=== PATIENT | female | born 1985 | race Two or more races ===

== ENCOUNTER 2017-05-29 11:56 | Inpatient (IN) | payer OTHER ==
[~2017-05-29] VITALS: Ht 165.1 cm; Wt 63.5 kg
[2017-05-29] MEDS ORDERED: Acetaminophen 500mg (ES) tab ORAL ONE (12:15)
[2017-05-29 12:30] LABS: ABG ALLEN TEST POSITIVE; ABG BASE EXCESS 0.9; ABG PCO2 28.7 mmHg (35.0-45.0)
[2017-05-29 12:37] LABS: BASOPHILS % (AUTO) 0.5 % (0.0-2.0); LYMPHOCYTES % (AUTO) 13.1 % (20.0-45.0); MEAN CORPUSCULAR HEMOGLOBIN 29.6 PG (27.0-31.0); MEAN CORPUSCULAR HGB CONC 31.7 G/DL (32.0-36.0); MEAN CORPUSCULAR VOLUME 93 FL (80-99); MEAN PLATELET VOLUME 7.3 FL (6.5-10.1); MONOCYTES % (AUTO) 6.4 % (1.0-10.0); PLATELET COUNT 328 K/UL (150-450); RED BLOOD COUNT 3.38 M/UL (4.20-5.40); WHITE BLOOD COUNT 9.2 K/UL (4.8-10.8)
[2017-05-29] MEDS ORDERED: METOPROLOL TART25 MG GT (12:49)
[2017-05-29] MEDS ORDERED: COLACE100 MG GT (12:49)
[2017-05-29] MEDS ORDERED: NORCO1 E1 GT (12:49)
[2017-05-29] MEDS ORDERED: ALBUTEROL SULF8.5 GM INH (12:49)
[2017-05-29 12:50] LABS: TROPONIN I < 0.30 ng/mL (<=0.30)
[2017-05-29 12:51] LABS: ALANINE AMINOTRANSFERASE 33 U/L (3-33); ALBUMIN/GLOBULIN RATIO 0.9 (1.0-2.7); ANION GAP 14 (5-15); ASPARTATE AMINO TRANSFERASE 22 U/L (5-40); CALCIUM 9.5 mg/dL (8.6-10.2); CARBON DIOXIDE 26 mEQ/L (20-30); CHLORIDE 96 mEQ/L (98-107); CREATININE 0.5 mg/dL (0.5-0.9); GLOMERULAR FILTRATION RATE > 60 mL/min (>60); HEMOLYSIS 0; POTASSIUM 4.3 mEQ/L (3.4-4.9); SODIUM 136 mEQ/L (135-145); TOTAL PROTEIN 7.9 g/dL (6.6-8.7)
[2017-05-29] MEDS ORDERED: Cefepime 1gm vial ONE (12:54)
[2017-05-29 12:56] LABS: APPEARANCE,URINE CLEAR; KETONES,URINE NEGATIVE (NEGATIVE); LEUKOCYTE ESTERASE ,URINE 1+ (NEGATIVE); NITRITE,URINE NEGATIVE (NEGATIVE); PH,URINE 7 (4.5-8.0); PROTEIN,URINE 1+ (NEGATIVE); UROBILINOGEN,URINE 4 MG/DL (0.0-1.0)
[2017-05-29 13:01] LABS: CKMB < 1.5 ng/mL (< 3.8)
[2017-05-29] MEDS: Cefepime HCl 1 GM in NS 55 ML IV SCH (13:06)
[2017-05-29 13:10] LABS: BACTERIA,URINE FEW /HPF; RBC,URINE 0-2 /HPF (0 - 2); SQUAMOUS EPITHELIAL CELL,UR FEW /LPF (NONE/OCC)
[2017-05-29 13:24] VITALS: BP 117/64
[2017-05-29] MEDS ORDERED: Acetaminophen 650mg/20.3ml GT ONE (13:30)
[2017-05-29] MEDS: metroNIDAZOLE 500mg 100 ML IV SCH ×2 (13:37→22:17)
[2017-05-29 14:37] VITALS: BP 116/66
[2017-05-29] MEDS ORDERED: MIRALAX17 G2 GT (14:47)
[2017-05-29] MEDS ORDERED: LOVENOX10 M2 SUBQ (14:47)
[2017-05-29] MEDS ORDERED: PROPRANOLOL HCL20 MG GT (14:47)
[2017-05-29] MEDS ORDERED: LISINOPRIL10 MG GT (14:47)
--- NOTE | 2017-05-29 14:54 | Diagnostic Imaging Report ---
Indication: PAIN Technique: One view of the pelvis Comparison: None Findings: There is evidence of extensive prior surgery. A large screw extends across the midline, likely fusing the sacrum and bilateral iliac wings. Immediately inferior to this are bilateral screws likely also fusing the iliac bones to the sacrum. A metallic sari attached to large device is seen at the lateral aspect of the right iliac wing. A surgical screw extends from the left supra-acetabular region, traverses across the acetabulum, and into the superior pubic ramus. There is questionably a visible fracture line at the junction of the superior pubic ramus and the acetabulum on this side. Another metallic sari extends from the left iliac bone beyond the image plane. Multiple healed fractures are seen involving the bilateral inferior pubic rami and right superior pubic ramus. There is some diastasis of the pubic symphysis. A Summers catheter is seen coiled within the bladder. No other acute fractures are demonstrated. Impression: Postsurgical and posttraumatic changes, as described. Correlate with clinical history
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
[2017-05-29 16:00] VITALS: BP 108/63
--- NOTE | 2017-05-29 16:57 | Diagnostic Imaging Report ---
Indication: SOB Technique: One view of the chest Comparison: none Findings: There is equivocal mild interstitial congestion. There is a tracheostomy. No focal airspace consolidation. Pleural spaces are clear. Heart size is normal. Surgical hardware seen in the right shoulder Impression: Equivocal mild interstitial congestion. No acute process otherwise Other findings as noted
[2017-05-29] MEDS ORDERED: LORazepam Inj 2mg/ml 1ml IV PRN (17:45)
[2017-05-29] MEDS ORDERED: DuoNeb 0.5-3(2.5)mg/3ml neb HHN PRN (17:45)
[2017-05-29] MEDS ORDERED: Morphine Sulfate 4mg/ml Inj IVP PRN (17:45)
[2017-05-29] MEDS ORDERED: Miralax 17gm pkt ORAL PRN (17:45)
[2017-05-29] MEDS ORDERED: Propranolol 40mg tab GT SCH (18:00)
[2017-05-29] MEDS ORDERED: Propranolol 10mg tab GT SCH (18:00)
[2017-05-29] MEDS: Piperacillin/Tazobactam 3.375 GM in NS 110 ML IVPB SCH (18:45)
[2017-05-29] MEDS ORDERED: Vancomycin 1250mg/D5W 250ml 250 ML IVPB SCH (19:00)
[2017-05-29 20:14] VITALS: BP 110/58
[2017-05-29 22:29] LABS: THYROID STIMULATING HORMONE 0.744 uIU/mL (0.300-4.500)
[2017-05-29] MEDS: Heparin 5000 units/ml inj SUBQ SCH (22:37)
[2017-05-30] VITALS (7 sets, daily range): BP systolic 104–115; BP diastolic 54–78
[2017-05-30] MEDS ORDERED: Cefepime 1gm vial ONE (00:08)
[2017-05-30] MEDS: Cefepime HCl 1 GM in NS 55 ML IV SCH (00:12)
[2017-05-30] MEDS: metroNIDAZOLE 500mg 100 ML IV SCH (04:02)
[2017-05-30] MEDS: Piperacillin/Tazobactam 3.375 GM in NS 110 ML IVPB SCH ×5 (05:19→22:00)
[2017-05-30 05:21] LABS: BASOPHILS % (AUTO) 0.6 % (0.0-2.0); EOSINOPHILS % (AUTO) 0.1 % (0.0-3.0); LYMPHOCYTES % (AUTO) 17.8 % (20.0-45.0); MEAN CORPUSCULAR HEMOGLOBIN 30.4 PG (27.0-31.0); MEAN CORPUSCULAR HGB CONC 32.7 G/DL (32.0-36.0); MEAN CORPUSCULAR VOLUME 93 FL (80-99); MEAN PLATELET VOLUME 7.3 FL (6.5-10.1); MONOCYTES % (AUTO) 5.5 % (1.0-10.0); PLATELET COUNT 300 K/UL (150-450); RED BLOOD COUNT 2.76 M/UL (4.20-5.40); RED CELL DISTRIBUTION WIDTH 15.8 % (11.6-14.8); WHITE BLOOD COUNT 12.7 K/UL (4.8-10.8)
[2017-05-30 05:38] LABS: ANION GAP 12 (5-15); CALCIUM 8.7 mg/dL (8.6-10.2); CARBON DIOXIDE 25 mEQ/L (20-30); CHLORIDE 100 mEQ/L (98-107); CREATININE 0.3 mg/dL (0.5-0.9); GLOMERULAR FILTRATION RATE > 60 mL/min (>60); HEMOLYSIS 0; PHOSPHORUS 3.6 mg/dL (2.5-4.8); POTASSIUM 3.2 mEQ/L (3.4-4.9); SODIUM 137 mEQ/L (135-145)
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
[2017-05-30] MEDS ORDERED: KCl 10% 40mEq/30ml liquid NG ONE (08:00)
[2017-05-30 09:22] LABS: ABG BASE EXCESS -0.5; ABG PCO2 30.8 mmHg (35.0-45.0)
[2017-05-30 09:23] LABS: ABG ALLEN TEST POSITIVE
[2017-05-30] MEDS: Metoprolol Tartrate 12.5mg TAB GT SCH ×2 (09:47→20:37)
[2017-05-30] MEDS: Lisinopril 20mg tab GT SCH (09:47)
[2017-05-30] MEDS: Miralax 17gm pkt GT SCH (09:47)
[2017-05-30] MEDS: Pantoprazole Inj IV SCH (09:48)
[2017-05-30] MEDS: Vancomycin 1gm/D5W 275ml IVPB SCH ×4 (09:48→20:00)
[2017-05-30] MEDS: Heparin 5000 units/ml inj SUBQ SCH ×2 (09:54→20:38)
[2017-05-30 10:21] LABS: HEMOLYSIS 0; IRON 20 ug/dL (37-145); TOTAL IRON BINDING CAPACITY 188 ug/dL (250-400)
[2017-05-30 10:24] LABS: FERRITIN 375 ng/mL (13-150)
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
[2017-05-30] MEDS ORDERED: Vancomycin 1 GM in D5W 275 ML IV SCH (23:00)
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
[2017-05-31 03:30] VITALS: BP 129/91
[2017-05-31] MEDS: Piperacillin/Tazobactam 3.375 GM in NS 110 ML IVPB SCH ×3 (05:35→22:00)
[2017-05-31 07:16] LABS: BASOPHILS % (AUTO) 0.5 % (0.0-2.0); EOSINOPHILS % (AUTO) 0.3 % (0.0-3.0); LYMPHOCYTES % (AUTO) 26.1 % (20.0-45.0); MEAN CORPUSCULAR HEMOGLOBIN 30.6 PG (27.0-31.0); MEAN CORPUSCULAR HGB CONC 33.1 G/DL (32.0-36.0); MEAN CORPUSCULAR VOLUME 92 FL (80-99); MEAN PLATELET VOLUME 7.6 FL (6.5-10.1); MONOCYTES % (AUTO) 5.9 % (1.0-10.0); NEUTROPHILS % (AUTO) 67.2 % (45.0-75.0); PLATELET COUNT 329 K/UL (150-450); RED BLOOD COUNT 3.09 M/UL (4.20-5.40); RED CELL DISTRIBUTION WIDTH 15.7 % (11.6-14.8); WHITE BLOOD COUNT 10.3 K/UL (4.8-10.8)
[2017-05-31 07:42] LABS: CALCIUM 8.9 mg/dL (8.6-10.2); CHLORIDE 103 mEQ/L (98-107); CREATININE 0.3 mg/dL (0.5-0.9); GLOMERULAR FILTRATION RATE > 60 mL/min (>60); HEMOLYSIS 1; MAGNESIUM 1.9 mg/dL (1.7-2.5); POTASSIUM 4.3 mEQ/L (3.4-4.9); SODIUM 139 mEQ/L (135-145)
[2017-05-31 07:48] LABS: ANION GAP 14 (5-15); CARBON DIOXIDE 22 mEQ/L (20-30)
[2017-05-31 08:01] VITALS: BP 113/67
[2017-05-31] MEDS: Metoprolol Tartrate 12.5mg TAB GT SCH ×2 (08:32→20:28)
[2017-05-31] MEDS: Vancomycin 1gm/D5W 275ml IVPB SCH ×2 (08:32)
[2017-05-31] MEDS: Lisinopril 20mg tab GT SCH (08:33)
[2017-05-31] MEDS: Heparin 5000 units/ml inj SUBQ SCH ×2 (08:35→20:35)
[2017-05-31] MEDS: Pantoprazole Inj IV SCH (08:35)
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
[2017-05-31] MEDS: Miralax 17gm pkt GT SCH (09:00)
--- NOTE | 2017-05-31 09:34 | Diagnostic Imaging Report ---
Indication: Shortness of breath Technique: XRAY CHEST 1 V Comparison: 05/29/17 Findings: Tracheostomy is partially visualized. Cardiomediastinal silhouette is stable. There is no consolidation, pneumothorax or pleural effusion. Osseous structures demonstrate no acute abnormality. Impression: Interval resolution of mild interstitial congestion. No new consolidation.
--- NOTE | 2017-05-31 11:03 | Pulmonology Progress Note ---
Assessment/Plan Assessment/Plan ASSESSMENT fever -resolved possible sepsis acute on chronic respiratory failure chronic respiratory failure tracheostomy dependence PNA anemia HTN encephalopathy hx of subdural hemorrhage 2 to TBI hx of craniotomy PLAN OF CARE CODEY empiric abx , fup cx, blood cx preliminary negative ID follows titrate Fio2 to keep sat above 92% pulmonary toilet suction frequently CXR 05/31 - Interval resolution of mild interstitial congestion. No new consolidation. Venous Duplex BLE negative ABG stable on current FiO2 DVT GI prophylaxis BP management with PIERO and BB and optimize as needed anemia w/up c/w anemia of chronic disease, HH at baseline, monitor counts K and Mg stable after replacement case discussed and evaluated by supervising physician Subjective Allergies: Coded Allergies: SHELLFISH DERIVED (Unverified Allergy, Unknown, 05/31/17) COPIED FROM UNCODED SECTION Subjective afebrile leucocytosis resolved Objective Last 24 Hour Vital Signs Date Time Temp Pulse Resp B/P (MAP) Pulse Ox O2 Delivery O2 Flow Rate FiO2 05/31/17 08:36 90 05/31/17 08:33 113/67 05/31/17 08:32 92 113/67 05/31/17 08:01 97.8 92 18 113/67 100 Trach Collar 28 05/31/17 08:00 28 05/31/17 06:34 T-piece 6.0 05/31/17 06:34 90 17 T-piece 6.0 05/31/17 06:34 100 T-piece 6.0 28 05/31/17 04:00 28 05/31/17 03:33 55 05/31/17 03:30 97.9 73 18 129/91 100 Mechanical Ventilator 05/31/17 01:15 T-piece 6.0 05/31/17 01:15 100 T-piece 6.0 05/31/17 00:00 28 05/30/17 23:37 91 05/30/17 23:17 97.0 91 20 114/78 100 Mechanical Ventilator 05/30/17 20:37 93 110/54 05/30/17 20:00 28 05/30/17 19:37 92 20 T-piece 6.0 28 05/30/17 19:37 T-piece 6.0 28 05/30/17 19:37 99 T-piece 6.0 28 05/30/17 19:28 90 05/30/17 19:20 98.1 93 20 110/54 100 Mechanical Ventilator 05/30/17 16:00 91 05/30/17 16:00 98.6 92 17 104/73 100 T-piece 28 05/30/17 16:00 28 05/30/17 13:50 100 T-piece 6.0 28 05/30/17 13:49 T-piece 6.0 28 05/30/17 12:00 28 05/30/17 12:00 90 05/30/17 12:00 98.5 94 18 104/58 100 T-piece 28 Intake and Output 05/31/17 06/01/17 19:00 07:00 Intake Total 617.500 ml Balance 617.500 ml Free Water 50 ml IV Total 357.500 ml Tube Feeding 160 ml Other 50 ml Objective General Appearance: no apparent distress, bedridden young AA female, eyes open , not responding Lines, tubes and drains: peripheral HEENT: evidence of prior craniotomy , status post trach - Shiley #6, secretions moderate yellow thick Neck: non-tender Respiratory/Chest: lungs clear, no respiratory distress Cardiovascular/Chest: normal rate, regular rhythm - SR on tele Abdomen: normal bowel sounds, non tender, soft, feeding tube, external fixator , no erythema or drainage around pins Genitourinary/Rectal: Summers - with clear yellow output Extremities: no edema, LLE posterior splint , Neurologic: abnormal gait - bedridden , eyes open, not responsive to verbal stimuli Musculoskeletal: atrophy BLE Microbiology Date/Time Source Procedure Growth Status 05/29/17 12:30 Blood Blood Culture - Preliminary NO GROWTH AFTER 24 HOURS Resulted 05/29/17 12:10 Blood Blood Culture - Preliminary NO GROWTH AFTER 24 HOURS Resulted 05/29/17 12:41 Nasal Nares MRSA Culture - Final NO METHICILLIN RESISTANT STAPH AUREUS... Complete 05/29/17 12:45 Rectum VRE Culture - Final NO VANCOMYCIN RESISTANT ENTEROCOCCUS ... Complete Laboratory Tests 05/31/17 06:40: White Blood Count 10.3, Red Blood Count 3.09L, Hemoglobin 9.4L, Hematocrit 28.5L , Mean Corpuscular Volume 92, Mean Corpuscular Hemoglobin 30.6, Mean Corpuscular Hemoglobin Concent 33.1, Red Cell Distribution Width 15.7H, Platelet Count 329, Mean Platelet Volume 7.6, Neutrophils (%) (Auto) 67.2, Lymphocytes (%) (Auto) 26.1, Monocytes (%) (Auto) 5.9, Eosinophils (%) (Auto) 0.3, Basophils (%) (Auto) 0.5, Sodium Level 139, Potassium Level 4.3, Chloride Level 103, Carbon Dioxide Level 22, Anion Gap 14, Blood Urea Nitrogen 15, Creatinine 0.3L, Estimat Glomerular Filtration Rate > 60, Glucose Level 112H, Calcium Level 8.9, Magnesium Level 1.9, Vancomycin Level Trough 8.5 Current Medications Medications (Trade) Dose Ordered Sig/Imelda Route PRN Reason Start Time Stop Time Status Last Admin Dose Admin Acetaminophen (Tylenol) 650 mg Q4H PRN ORAL FEVER 05/29/17 17:45 06/28/17 17:44 Albuterol/ Ipratropium (DuoNeb 0.5-3(2.5)mg/3ml) 3 ml EVERY 4 HOURS PRN HHN Shortness of Breath 05/29/17 17:45 06/03/17 17:44 Dextrose (Dextrose 50%) STAT PRN IV Hypoglycemia 05/29/17 17:45 06/28/17 17:44 Heparin Sodium (Porcine) (Heparin 5000 units/ml) 5,000 units EVERY 12 HOURS SUBQ 05/29/17 21:00 06/28/17 20:59 05/31/17 08:35 Lisinopril (Prinivil) 20 mg DAILY GT 05/30/17 09:00 06/29/17 08:59 05/31/17 08:33 Lorazepam (Ativan 2mg/ml 1ml) 2 mg EVERY 2 HOURS PRN IV For Anxiety 05/29/17 17:45 06/05/17 17:44 Metoprolol Tartrate (Lopressor) 12.5 mg Q12HR GT 05/30/17 09:00 06/29/17 08:59 05/31/17 08:32 Morphine Sulfate (Morphine Sulfate) 4 mg EVERY 4 HOURS PRN IVP Severe Pain (Pain Scale 7-10) 05/29/17 17:45 06/05/17 17:44 Ondansetron HCl (Zofran) 4 mg Q6H PRN IVP Nausea & Vomiting 05/29/17 17:45 06/28/17 17:44 Pantoprazole (Protonix) 40 mg DAILY IV 05/30/17 09:00 06/29/17 08:59 05/31/17 08:35 Piperacillin Sod/ Tazobactam Sod 3.375 gm/Sodium Chloride 110 ml @ 27.5 mls/hr Q8HR IVPB 05/30/17 22:00 06/06/17 21:59 05/31/17 05:35 Polyethylene Glycol (Miralax) 17 gm DAILY GT 05/30/17 09:00 06/29/17 08:59 05/30/17 09:47 Polyethylene Glycol (Miralax) 17 gm DAILYPRN PRN ORAL Constipation 05/29/17 17:45 06/28/17 17:44 Vancomycin HCl (Vanco rx to dose) 1 ea DAILY PRN MISC PER RX PROTOCOL 05/30/17 15:45 06/29/17 15:44 Vancomycin HCl/ Dextrose 250 ml @ 166.667 mls/hr Q12HR IVPB 05/31/17 21:00 06/05/17 20:59 Jocelyn Cleveland NP (Vanchtein) May 31, 2017 11:03
[2017-05-31] MEDS ORDERED: Tubing IV Secondary IV ONE ×2 (11:06→16:45)
[2017-05-31] MEDS ORDERED: NS 275ml ONE ×2 (11:06→16:45)
[2017-05-31 12:00] VITALS: BP 120/71
[2017-05-31 16:00] VITALS: BP 111/81
[2017-05-31 20:00] VITALS: BP 111/73
[2017-05-31] MEDS: Vancomycin 1250mg/D5W 250ml IVPB SCH (20:33)
[2017-06-01] VITALS: BP 120/78
[2017-06-01 04:00] VITALS: BP 127/81
[2017-06-01 05:24] LABS: EOSINOPHILS % (AUTO) 0.8 % (0.0-3.0); LYMPHOCYTES % (AUTO) 37.3 % (20.0-45.0); MEAN CORPUSCULAR HEMOGLOBIN 30.6 PG (27.0-31.0); MEAN CORPUSCULAR HGB CONC 33.4 G/DL (32.0-36.0); MEAN CORPUSCULAR VOLUME 91 FL (80-99); MEAN PLATELET VOLUME 6.6 FL (6.5-10.1); MONOCYTES % (AUTO) 7.6 % (1.0-10.0); NEUTROPHILS % (AUTO) 53.4 % (45.0-75.0); PLATELET COUNT 360 K/UL (150-450); RED BLOOD COUNT 3.39 M/UL (4.20-5.40); RED CELL DISTRIBUTION WIDTH 14.7 % (11.6-14.8)
[2017-06-01 05:35] LABS: ANION GAP 12 (5-15); CALCIUM 9.4 mg/dL (8.6-10.2); CARBON DIOXIDE 23 mEQ/L (20-30); CHLORIDE 100 mEQ/L (98-107); CREATININE 0.4 mg/dL (0.5-0.9); GLOMERULAR FILTRATION RATE > 60 mL/min (>60); HEMOLYSIS 1; POTASSIUM 4.6 mEQ/L (3.4-4.9); SODIUM 135 mEQ/L (135-145)
[2017-06-01] MEDS: Piperacillin/Tazobactam 3.375 GM in NS 110 ML IVPB SCH ×3 (06:00→21:58)
[2017-06-01 06:45] LABS: ERYTHROCYTE SEDIMENTATION RATE 108 MM/HR (0-20)
[2017-06-01 08:00] VITALS: BP 121/79
--- NOTE | 2017-06-01 08:40 | Infectious Diseases Prog Note ---
Assessment/Plan Assessment/Plan A; Fever/ Leukocytosis resolved Chronic respiratory failure Encephalopathy Anemia P: Continue Zosyn & Vancomycin Subjective ROS Limited/Unobtainable: Yes Allergies: Coded Allergies: SHELLFISH DERIVED (Unverified Allergy, Unknown, 05/31/17) COPIED FROM UNCODED SECTION Objective Vital Signs Last 24 Hour Vital Signs Date Time Temp Pulse Resp B/P (MAP) Pulse Ox O2 Delivery O2 Flow Rate FiO2 06/01/17 08:00 97.7 88 19 121/79 100 T-piece 06/01/17 08:00 93 06/01/17 08:00 28 06/01/17 04:00 97.2 90 20 127/81 100 T-piece 06/01/17 04:00 28 06/01/17 03:30 76 06/01/17 01:30 T-piece 6.0 06/01/17 01:30 98 T-piece 6.0 06/01/17 00:00 28 06/01/17 00:00 98.0 78 20 120/78 100 T-piece 06/01/17 00:00 76 05/31/17 20:28 91 111/81 05/31/17 20:00 28 05/31/17 20:00 97.7 90 20 111/73 100 T-piece 05/31/17 20:00 89 05/31/17 19:17 99 T-piece 6.0 05/31/17 19:17 T-piece 6.0 05/31/17 19:17 91 20 T-piece 6.0 05/31/17 16:00 28 05/31/17 16:00 97.8 89 18 111/81 100 Trach Collar 05/31/17 15:35 84 05/31/17 12:42 T-piece 6.0 05/31/17 12:42 100 T-piece 6.0 05/31/17 12:21 84 05/31/17 12:00 28 05/31/17 12:00 98.0 88 18 120/71 100 Trach Collar 28 Height (Feet): 5 Height (Inches): 5.00 Weight (Pounds): 140 General Appearance: no acute distress HEENT: status post trach Respiratory/Chest: lungs clear Cardiovascular: normal rate Abdomen: soft, non tender, other - GT feeding Extremities: no edema Neurologic/Psychiatric: aphasia, other - opens eyes, moves right arm Microbiology Date/Time Source Procedure Growth Status 05/29/17 12:30 Blood Blood Culture - Preliminary NO GROWTH AFTER 48 HOURS Resulted 05/29/17 12:10 Blood Blood Culture - Preliminary NO GROWTH AFTER 48 HOURS Resulted 05/29/17 12:41 Nasal Nares MRSA Culture - Final NO METHICILLIN RESISTANT STAPH AUREUS... Complete 05/29/17 12:45 Rectum VRE Culture - Final NO VANCOMYCIN RESISTANT ENTEROCOCCUS ... Complete Laboratory Tests Test 06/01/17 04:32 White Blood Count 9.0 K/UL (4.8-10.8) Red Blood Count 3.39 M/UL (4.20-5.40) L Hemoglobin 10.4 G/DL (12.0-16.0) L Hematocrit 30.9 % (37.0-47.0) L Mean Corpuscular Volume 91 FL (80-99) Mean Corpuscular Hemoglobin 30.6 PG (27.0-31.0) Mean Corpuscular Hemoglobin Concent 33.4 G/DL (32.0-36.0) Red Cell Distribution Width 14.7 % (11.6-14.8) Platelet Count 360 K/UL (150-450) Mean Platelet Volume 6.6 FL (6.5-10.1) Neutrophils (%) (Auto) 53.4 % (45.0-75.0) Lymphocytes (%) (Auto) 37.3 % (20.0-45.0) Monocytes (%) (Auto) 7.6 % (1.0-10.0) Eosinophils (%) (Auto) 0.8 % (0.0-3.0) Basophils (%) (Auto) 1.0 % (0.0-2.0) Erythrocyte Sedimentation Rate 108 MM/HR (0-20) H Sodium Level 135 mEQ/L (135-145) Potassium Level 4.6 mEQ/L (3.4-4.9) Chloride Level 100 mEQ/L (98-107) Carbon Dioxide Level 23 mEQ/L (20-30) Anion Gap 12 (5-15) Blood Urea Nitrogen 10 mg/dL (7-23) Creatinine 0.4 mg/dL (0.5-0.9) L Estimat Glomerular Filtration Rate > 60 mL/min (>60) Glucose Level 97 mg/dL (74-106) Calcium Level 9.4 mg/dL (8.6-10.2) Current Medications Medications (Trade) Dose Ordered Sig/Imelda Route PRN Reason Start Time Stop Time Status Last Admin Dose Admin Acetaminophen (Tylenol) 650 mg Q4H PRN ORAL FEVER 05/29/17 17:45 06/28/17 17:44 Albuterol/ Ipratropium (DuoNeb 0.5-3(2.5)mg/3ml) 3 ml EVERY 4 HOURS PRN HHN Shortness of Breath 05/29/17 17:45 06/03/17 17:44 Dextrose (Dextrose 50%) STAT PRN IV Hypoglycemia 05/29/17 17:45 06/28/17 17:44 Heparin Sodium (Porcine) (Heparin 5000 units/ml) 5,000 units EVERY 12 HOURS SUBQ 05/29/17 21:00 06/28/17 20:59 05/31/17 20:35 Lansoprazole (Prevacid) 30 mg DAILY GT 06/01/17 09:00 07/01/17 08:59 Lisinopril (Prinivil) 20 mg DAILY GT 05/30/17 09:00 06/29/17 08:59 05/31/17 08:33 Lorazepam (Ativan 2mg/ml 1ml) 2 mg EVERY 2 HOURS PRN IV For Anxiety 05/29/17 17:45 06/05/17 17:44 Metoprolol Tartrate (Lopressor) 12.5 mg Q12HR GT 05/30/17 09:00 06/29/17 08:59 05/31/17 20:28 Morphine Sulfate (Morphine Sulfate) 4 mg EVERY 4 HOURS PRN IVP Severe Pain (Pain Scale 7-10) 05/29/17 17:45 06/05/17 17:44 Ondansetron HCl (Zofran) 4 mg Q6H PRN IVP Nausea & Vomiting 05/29/17 17:45 06/28/17 17:44 Piperacillin Sod/ Tazobactam Sod 3.375 gm/Sodium Chloride 110 ml @ 27.5 mls/hr Q8HR IVPB 05/30/17 22:00 06/06/17 21:59 06/01/17 06:00 Polyethylene Glycol (Miralax) 17 gm DAILY GT 05/30/17 09:00 06/29/17 08:59 05/30/17 09:47 Polyethylene Glycol (Miralax) 17 gm DAILYPRN PRN ORAL Constipation 05/29/17 17:45 06/28/17 17:44 Vancomycin HCl (Vanco rx to dose) 1 ea DAILY PRN MISC PER RX PROTOCOL 05/30/17 15:45 06/29/17 15:44 Vancomycin HCl/ Dextrose 250 ml @ 166.667 mls/hr Q12HR IVPB 05/31/17 21:00 06/05/17 20:59 05/31/17 20:33 BONG ROJAS Jun 01, 2017 08:40
--- NOTE | 2017-06-01 08:53 | Pulmonology Progress Note ---
Assessment/Plan Assessment/Plan ASSESSMENT fever -resolved possible sepsis acute on chronic respiratory failure chronic respiratory failure tracheostomy dependence PNA anemia HTN encephalopathy hx of subdural hemorrhage 2 to TBI hx of craniotomy PLAN OF CARE CODEY empiric abx , fup cx, blood cx preliminary negative ID follows titrate Fio2 to keep sat above 92% pulmonary toilet suction frequently CXR 05/31 - Interval resolution of mild interstitial congestion. No new consolidation. Venous Duplex BLE negative ABG stable on current FiO2 DVT GI prophylaxis BP management with PIERO and BB and optimize as needed anemia w/up c/w anemia of chronic disease, HH at baseline, monitor counts, remains at baseline K and Mg stable after replacement dc plan for am if cleared by ID case discussed and evaluated by supervising physician Subjective Allergies: Coded Allergies: SHELLFISH DERIVED (Unverified Allergy, Unknown, 05/31/17) COPIED FROM UNCODED SECTION Subjective afebrile leucocytosis resolved no signs of respiratory distress on current settings Objective Last 24 Hour Vital Signs Date Time Temp Pulse Resp B/P (MAP) Pulse Ox O2 Delivery O2 Flow Rate FiO2 06/01/17 08:00 97.7 88 19 121/79 100 T-piece 28 06/01/17 08:00 93 06/01/17 08:00 28 06/01/17 04:00 97.2 90 20 127/81 100 T-piece 06/01/17 04:00 06/01/17 03:30 76 06/01/17 01:30 T-piece 6.0 06/01/17 01:30 98 T-piece 6.0 06/01/17 00:00 28 06/01/17 00:00 98.0 78 20 120/78 100 T-piece 06/01/17 00:00 76 05/31/17 20:28 91 111/81 05/31/17 20:00 28 05/31/17 20:00 97.7 90 20 111/73 100 T-piece 05/31/17 20:00 89 05/31/17 19:17 99 T-piece 6.0 05/31/17 19:17 T-piece 6.0 05/31/17 19:17 91 20 T-piece 6.0 05/31/17 16:00 28 05/31/17 16:00 97.8 89 18 111/81 100 Trach Collar 05/31/17 15:35 84 05/31/17 12:42 T-piece 6.0 28 05/31/17 12:42 100 T-piece 6.0 05/31/17 12:21 84 05/31/17 12:00 28 05/31/17 12:00 98.0 88 18 120/71 100 Trach Collar 28 Objective General Appearance: no apparent distress, bedridden young AA female, eyes open , not responding Lines, tubes and drains: peripheral HEENT: evidence of prior craniotomy , status post trach - Shiley #6, secretions moderate yellow thick, FiO2 28% via trach collar Neck: non-tender Respiratory/Chest: lungs clear, no respiratory distress Cardiovascular/Chest: normal rate, regular rhythm - SR on tele Abdomen: normal bowel sounds, non tender, soft, feeding tube, external fixator , no erythema or drainage around pins Genitourinary/Rectal: Summers - with clear yellow output Extremities: no edema, LLE posterior splint , Neurologic: abnormal gait - bedridden , eyes open, not responsive to verbal stimuli Musculoskeletal: atrophy BLE Microbiology Date/Time Source Procedure Growth Status 05/29/17 12:30 Blood Blood Culture - Preliminary NO GROWTH AFTER 48 HOURS Resulted 05/29/17 12:10 Blood Blood Culture - Preliminary NO GROWTH AFTER 48 HOURS Resulted 05/29/17 12:41 Nasal Nares MRSA Culture - Final NO METHICILLIN RESISTANT STAPH AUREUS... Complete 05/29/17 12:45 Rectum VRE Culture - Final NO VANCOMYCIN RESISTANT ENTEROCOCCUS ... Complete Laboratory Tests 06/01/17 04:32: White Blood Count 9.0, Red Blood Count 3.39L, Hemoglobin 10.4L, Hematocrit 30.9L , Mean Corpuscular Volume 91, Mean Corpuscular Hemoglobin 30.6, Mean Corpuscular Hemoglobin Concent 33.4, Red Cell Distribution Width 14.7, Platelet Count 360, Mean Platelet Volume 6.6, Neutrophils (%) (Auto) 53.4, Lymphocytes (% ) (Auto) 37.3, Monocytes (%) (Auto) 7.6, Eosinophils (%) (Auto) 0.8, Basophils ( %) (Auto) 1.0, Erythrocyte Sedimentation Rate 108H, Sodium Level 135, Potassium Level 4.6, Chloride Level 100, Carbon Dioxide Level 23, Anion Gap 12, Blood Urea Nitrogen 10, Creatinine 0.4L, Estimat Glomerular Filtration Rate > 60, Glucose Level 97, Calcium Level 9.4 Current Medications Medications (Trade) Dose Ordered Sig/Imelda Route PRN Reason Start Time Stop Time Status Last Admin Dose Admin Acetaminophen (Tylenol) 650 mg Q4H PRN ORAL FEVER 05/29/17 17:45 06/28/17 17:44 Albuterol/ Ipratropium (DuoNeb 0.5-3(2.5)mg/3ml) 3 ml EVERY 4 HOURS PRN HHN Shortness of Breath 05/29/17 17:45 06/03/17 17:44 Dextrose (Dextrose 50%) STAT PRN IV Hypoglycemia 05/29/17 17:45 06/28/17 17:44 Heparin Sodium (Porcine) (Heparin 5000 units/ml) 5,000 units EVERY 12 HOURS SUBQ 05/29/17 21:00 06/28/17 20:59 05/31/17 20:35 Lansoprazole (Prevacid) 30 mg DAILY GT 06/01/17 09:00 07/01/17 08:59 Lisinopril (Prinivil) 20 mg DAILY GT 05/30/17 09:00 06/29/17 08:59 05/31/17 08:33 Lorazepam (Ativan 2mg/ml 1ml) 2 mg EVERY 2 HOURS PRN IV For Anxiety 05/29/17 17:45 06/05/17 17:44 Metoprolol Tartrate (Lopressor) 12.5 mg Q12HR GT 05/30/17 09:00 06/29/17 08:59 05/31/17 20:28 Morphine Sulfate (Morphine Sulfate) 4 mg EVERY 4 HOURS PRN IVP Severe Pain (Pain Scale 7-10) 05/29/17 17:45 06/05/17 17:44 Ondansetron HCl (Zofran) 4 mg Q6H PRN IVP Nausea & Vomiting 05/29/17 17:45 06/28/17 17:44 Piperacillin Sod/ Tazobactam Sod 3.375 gm/Sodium Chloride 110 ml @ 27.5 mls/hr Q8HR IVPB 05/30/17 22:00 06/06/17 21:59 06/01/17 06:00 Polyethylene Glycol (Miralax) 17 gm DAILY GT 05/30/17 09:00 06/29/17 08:59 05/30/17 09:47 Polyethylene Glycol (Miralax) 17 gm DAILYPRN PRN ORAL Constipation 05/29/17 17:45 06/28/17 17:44 Vancomycin HCl (Vanco rx to dose) 1 ea DAILY PRN MISC PER RX PROTOCOL 05/30/17 15:45 06/29/17 15:44 Vancomycin HCl/ Dextrose 250 ml @ 166.667 mls/hr Q12HR IVPB 05/31/17 21:00 06/05/17 20:59 05/31/17 20:33 Cristofer (Idalia)Jocelyn NP Jun 01, 2017 08:53
[2017-06-01] MEDS ORDERED: DuoNeb 0.5-3(2.5)mg/3ml neb HHN PRN (09:00)
[2017-06-01] MEDS: Lisinopril 20mg tab GT SCH (09:11)
[2017-06-01] MEDS: Metoprolol Tartrate 12.5mg TAB GT SCH ×2 (09:11→20:54)
[2017-06-01] MEDS: Vancomycin 1250mg/D5W 250ml IVPB SCH ×2 (09:12→20:55)
[2017-06-01] MEDS: Miralax 17gm pkt GT SCH (09:12)
[2017-06-01] MEDS: Heparin 5000 units/ml inj SUBQ SCH ×2 (09:19→20:58)
[2017-06-01 12:00] VITALS: BP 118/77
--- NOTE | 2017-06-01 14:53 | Cardiology Report ---
APPROVED REPORT EKG Measurement Heart [id number] Sinus tachycardia Cannot rule out Anterior infarct, age undetermined Abnormal ECG
[2017-06-01 16:00] VITALS: BP 124/77
[2017-06-01 20:17] VITALS: BP 119/65
[2017-06-02] VITALS: BP 131/68
[2017-06-02 04:00] VITALS: BP 122/81
[2017-06-02 05:32] LABS: BASOPHILS % (AUTO) 0.6 % (0.0-2.0); EOSINOPHILS % (AUTO) 0.9 % (0.0-3.0); LYMPHOCYTES % (AUTO) 26.5 % (20.0-45.0); MEAN CORPUSCULAR HEMOGLOBIN 29.8 PG (27.0-31.0); MEAN CORPUSCULAR HGB CONC 32.4 G/DL (32.0-36.0); MEAN CORPUSCULAR VOLUME 92 FL (80-99); MEAN PLATELET VOLUME 6.2 FL (6.5-10.1); MONOCYTES % (AUTO) 9.4 % (1.0-10.0); NEUTROPHILS % (AUTO) 62.6 % (45.0-75.0); PLATELET COUNT 388 K/UL (150-450); RED BLOOD COUNT 3.38 M/UL (4.20-5.40); RED CELL DISTRIBUTION WIDTH 15.3 % (11.6-14.8); WHITE BLOOD COUNT 9.7 K/UL (4.8-10.8)
[2017-06-02 05:48] LABS: ANION GAP 14 (5-15); CALCIUM 9.4 mg/dL (8.6-10.2); CARBON DIOXIDE 24 mEQ/L (20-30); CHLORIDE 102 mEQ/L (98-107); CREATININE 0.5 mg/dL (0.5-0.9); GLOMERULAR FILTRATION RATE > 60 mL/min (>60); HEMOLYSIS 1; POTASSIUM 4.1 mEQ/L (3.4-4.9); SODIUM 140 mEQ/L (135-145)
[2017-06-02] MEDS: Piperacillin/Tazobactam 3.375 GM in NS 110 ML IVPB SCH ×2 (05:49→14:29)
[2017-06-02 08:00] VITALS: BP 121/82
--- NOTE | 2017-06-02 09:45 | Progress Note ---
DATE: 05/30/2017 Subjective: The patient is afebrile, hemodynamically stable without tachycardia, however, she is diaphoretic and appears comfortable. OBJECTIVE: Vital Signs: Blood pressure 140/62, pulse 94, respirations 21, and temperature 98.1 degrees. HEENT: Eyes were normal. ENT, mucous membranes were moist and intact. Neck: Supple with no JVD without lymph nodes. Tracheostomy site is clean. Lungs: Clear without rhonchi, rales, or wheezing. Secretions are small, thin, and mason. Heart: Normal sounds with regular beats. There is no S3, S4, or pericardial rub. Abdomen: Soft and nontender with normal bowel sounds. Gastrostomy site is clean. EXTREMITIES: Warm without cyanosis, clubbing, or edema. Laboratory And Diagnostic Data: Hemoglobin is 8.4, hematocrit 25.3 with MCV of 93, WBC of 12.7, and platelets 300,000. Her hemoglobin and hematocrit was 10 and 31.5 yesterday. Her BUN and creatinine is 13 and 0.3 respectively. Sodium is 147, potassium 3.2, chloride 100, and CO2 25. Calcium is 8.7 and phosphorus 3.6. Magnesium is not available. . Albumin is 3.0. imaging study was not available at the time of this dictation. Impression: The patient was admitted because of fever, tachycardia, and tachypnea, however, during this time, she did not have leukocytosis and did not have fever on admission. WBC has increased today and her hemoglobin and hematocrit dropped. She is hypokalemic. She by the credit collection specialist. Blood cultures are pending. Repeat laboratory tests will be done in the morning. Nadir Fontaine M.D. DR: Jack JOB#: [id number] CC:
[2017-06-02] MEDS: Vancomycin 1250mg/D5W 250ml IVPB SCH (10:15)
[2017-06-02] MEDS: Lisinopril 20mg tab GT SCH (10:19)
[2017-06-02] MEDS: Metoprolol Tartrate 12.5mg TAB GT SCH (10:19)
[2017-06-02] MEDS: Miralax 17gm pkt GT SCH (10:20)
[2017-06-02] MEDS: Heparin 5000 units/ml inj SUBQ SCH (10:29)
--- NOTE | 2017-06-02 10:33 | Diagnostic Imaging Report ---
Indication: SOB Technique: One view of the chest Comparison: 05/31/2017 Findings: Tracheostomy remains. Lungs and pleural space remain clear. Heart size is normal. No significant change Impression: No acute process
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
--- NOTE | 2017-06-02 11:00 | Progress Note ---
DATE: 06/01/2017 Subjective: The patient is alert with eye contact and was asked to close the eyes. She responded by her eyes when asked to close them twice, she closed the eyes twice. OBJECTIVE: Vital Signs: Blood pressure 154/77, pulse is 97, respirations were 19, and temperature 98.5 degrees. HEENT: Eyes: Normal. ENT: Mucous membranes were moist and intact. Neck: Supple with no JVD without lymph nodes. Tracheostomy site is clean. Lungs: Clear without rhonchi, rales, or wheezing. Secretions are small, thin, and mason. Heart: Normal sounds with regular beats. There is near tachycardia at rest. Sinus rhythm on monitor. Abdomen: Soft and nontender with normal bowel sounds. Gastrostomy site is clean. EXTREMITIES: Warm without cyanosis, clubbing, or edema. Neurological: The patient can raise her right arm up and put it down down at request. Laboratory Data: Hemoglobin is 10.4, hematocrit is 30.9, MCV of 91, WBC of 9.0, and platelet 360,000 108. Her BUN and creatinine are 10 and 0.4 respectively. Sodium is 135, potassium 4.6, chloride 100, CO2 is 24, and magnesium is 1.9. Alk phos was not done. Calcium is 9.4. negative. Blood culture was negative. The patient is on vancomycin and piperacillin plus tazobactam. Impression: The patient was admitted with suspicion of sepsis, fever, tachycardia, tachypnea, diaphoresis, and malaise, however, without leukocytosis and without indicate source of infection. She rapidly responded to antibiotic by reducing the respiratory rate and the tachycardia, however, the patient received morphine at the same time. There was a question remained and sepsis or neurogenic fever fact in this admission is the patient was relatively during her stay in the subacute, she encephalopathic. Repeat laboratory tests will be done in the morning. Nadir Fontaine M.D. DR: Jack JOB#: [id number] CC:
--- NOTE | 2017-06-02 11:00 | Progress Note ---
DATE: 05/31/2017 Subjective: The patient with facial expression. She moves slightly her right upper extremity, but no eye contact and does not respond to stimuli. PHYSICAL EXAMINATION: Vital Signs: Blood pressure is 120/71, pulse is 88, respirations 10, and temperature was 98 degrees. HEENT: Eyes were normal. ENT, mucous membranes were moist and intact. Neck: Supple with no JVD without lymph nodes. Tracheostomy site is clean. Lungs: Clear rales or wheezing, residual rhonchi in the right lower lobe. Heart: Normal S1 and S2 with regular beat. There is no S3, S4, or pericardial rub. Abdomen: Soft and nontender with normal bowel sounds. Gastrostomy site is clean. Fixative metal sari on both sides of the pelvis, the site has no erythema or exudate. EXTREMITIES: Warm without cyanosis, clubbing, or edema. Laboratory And Diagnostic Data: Hemoglobin is 9.4, hematocrit 28.5 with MCV of 92, WBC of 10.3, and platelets are 329,000. Her BUN and creatinine is 15 and 0.3 respectively. Her sodium is 139, potassium 4.3, chloride 103, and CO2 is 22. Her chest x-ray revealed interval resolution of interstitial congestion without any infiltrate. Impression and plan: The patient was admitted with fever, tachycardia, tachypnea, and respiratory distress. She has no fever however, she is on empiric intravenous antibiotic of Zosyn and vancomycin. Initial origin of her symptoms remained septic or neurogenic. IV antibiotics will be continued until result of the different culture become available. Repeat laboratory tests will be done in the morning. Nadir Fontaine M.D. DR: BERNIE JOB#: [id number] CC:
--- NOTE | 2017-06-02 11:19 | Pulmonology Progress Note ---
Assessment/Plan Problems: (1) Sepsis (2) Chronic respiratory failure (3) Tracheostomy dependence (4) Gastrostomy status (5) Tracheostomy dependent (6) TBI (traumatic brain injury) Respiratory: monitor respiratory rate, adjust FIO2 Cardiac: continue to monitor HR/BP Renal: F/U I&O, keep IV fluid, check electrolytes Infectious Disease: check cultures, continue antibiotics Gastrointestinal: continue feedings/current rate Endocrine: monitor blood sugar, check TSH, continue sliding scale insulin Hematologic: monitor H/H, transfuse if hgb<8.5 Neurologic: PRN Ativan, PRN Morphine, keep patient comfortable Time Spent (Minutes): 40 Notes Reviewed: renal Discussed with: nurses, consultants, correctional casework specialist Subjective ROS Limited/Unobtainable: Yes Constitutional: Reports: no symptoms HEENT: Repors: no symptoms Allergies: Coded Allergies: SHELLFISH DERIVED (Unverified Allergy, Unknown, 05/31/17) COPIED FROM UNCODED SECTION Objective Last 24 Hour Vital Signs Date Time Temp Pulse Resp B/P (MAP) Pulse Ox O2 Delivery O2 Flow Rate FiO2 06/02/17 10:19 88 121/88 06/02/17 10:19 121/82 06/02/17 08:00 97.8 95 18 121/82 100 T-piece 100 06/02/17 08:00 28 06/02/17 07:53 T-piece 6.0 06/02/17 07:53 106 18 T-piece 6.0 06/02/17 07:53 100 T-piece 6.0 06/02/17 07:33 104 06/02/17 04:00 91 06/02/17 04:00 98.3 91 22 122/81 100 T-piece 06/02/17 04:00 28 06/02/17 02:34 100 T-piece 6.0 06/02/17 02:34 T-piece 6.0 06/02/17 00:00 97.8 104 20 131/68 99 T-piece 06/01/17 21:52 28 06/01/17 20:54 105 119/65 06/01/17 20:17 98.1 105 20 119/65 99 T-piece 06/01/17 20:00 105 06/01/17 19:30 100 T-piece 6.0 06/01/17 19:30 T-piece 6.0 28 06/01/17 19:29 107 17 T-piece 6.0 28 06/01/17 16:00 97 06/01/17 16:00 98.5 97 19 124/77 100 T-piece 28 06/01/17 16:00 28 06/01/17 15:48 73 06/01/17 13:03 100 T-piece 6.0 28 06/01/17 13:03 T-piece 6.0 28 06/01/17 12:00 28 06/01/17 12:00 89 06/01/17 12:00 97.8 95 18 118/77 100 T-piece 100 Intake and Output 06/02/17 06/03/17 19:00 07:00 # Bowel Movements 1 General Appearance: cachetic HEENT: normocephalic, atraumatic Respiratory/Chest: chest wall non-tender, lungs clear Breasts: no masses Cardiovascular: normal peripheral pulses, normal rate Abdomen: normal bowel sounds, soft, non tender Genitourinary: normal external genitalia Extremities: no cyanosis Skin: no rash, no lesions Laboratory Tests 06/02/17 03:40: White Blood Count 9.7, Red Blood Count 3.38L, Hemoglobin 10.1L, Hematocrit 31.1L , Mean Corpuscular Volume 92, Mean Corpuscular Hemoglobin 29.8, Mean Corpuscular Hemoglobin Concent 32.4, Red Cell Distribution Width 15.3H, Platelet Count 388, Mean Platelet Volume 6.2L, Neutrophils (%) (Auto) 62.6, Lymphocytes (%) (Auto) 26.5, Monocytes (%) (Auto) 9.4, Eosinophils (%) (Auto) 0.9, Basophils (%) (Auto) 0.6, Sodium Level 140, Potassium Level 4.1, Chloride Level 102, Carbon Dioxide Level 24, Anion Gap 14, Blood Urea Nitrogen 9, Creatinine 0.5, Estimat Glomerular Filtration Rate > 60, Glucose Level 95, Calcium Level 9.4 Current Medications Medications (Trade) Dose Ordered Sig/Imelda Route PRN Reason Start Time Stop Time Status Last Admin Dose Admin Acetaminophen (Tylenol) 650 mg Q4H PRN ORAL FEVER 05/29/17 17:45 06/28/17 17:44 Albuterol/ Ipratropium (DuoNeb 0.5-3(2.5)mg/3ml) 3 ml Q4H PRN HHN Shortness of Breath 06/01/17 09:00 06/06/17 08:59 Dextrose (Dextrose 50%) STAT PRN IV Hypoglycemia 05/29/17 17:45 06/28/17 17:44 Heparin Sodium (Porcine) (Heparin 5000 units/ml) 5,000 units EVERY 12 HOURS SUBQ 05/29/17 21:00 06/28/17 20:59 06/02/17 10:29 Lansoprazole (Prevacid) 30 mg DAILY GT 06/01/17 09:00 07/01/17 08:59 06/02/17 10:20 Lisinopril (Prinivil) 20 mg DAILY GT 05/30/17 09:00 06/29/17 08:59 06/02/17 10:19 Lorazepam (Ativan 2mg/ml 1ml) 2 mg EVERY 2 HOURS PRN IV For Anxiety 05/29/17 17:45 06/05/17 17:44 Metoprolol Tartrate (Lopressor) 12.5 mg Q12HR GT 05/30/17 09:00 06/29/17 08:59 06/02/17 10:19 Morphine Sulfate (Morphine Sulfate) 4 mg EVERY 4 HOURS PRN IVP Severe Pain (Pain Scale 7-10) 05/29/17 17:45 06/05/17 17:44 Ondansetron HCl (Zofran) 4 mg Q6H PRN IVP Nausea & Vomiting 05/29/17 17:45 06/28/17 17:44 Piperacillin Sod/ Tazobactam Sod 3.375 gm/Sodium Chloride 110 ml @ 27.5 mls/hr Q8HR IVPB 05/30/17 22:00 06/06/17 21:59 06/02/17 05:49 Polyethylene Glycol (Miralax) 17 gm DAILY GT 05/30/17 09:00 06/29/17 08:59 06/02/17 10:20 Polyethylene Glycol (Miralax) 17 gm DAILYPRN PRN ORAL Constipation 05/29/17 17:45 06/28/17 17:44 Vancomycin HCl (Vanco rx to dose) 1 ea DAILY PRN MISC PER RX PROTOCOL 05/30/17 15:45 06/29/17 15:44 Vancomycin HCl/ Dextrose 250 ml @ 166.667 mls/hr Q12HR IVPB 05/31/17 21:00 06/05/17 20:59 06/02/17 10:15 JER DOBSON Jun 02, 2017 11:19
[2017-06-02] MEDS ORDERED: ZOSYN 3.373.375 GM/1 IVPB (11:20)
[2017-06-02 12:00] VITALS: BP 116/64
--- NOTE | 2017-06-02 12:53 | Diagnostic Imaging Report ---
APPROVED REPORT CPT Code: 43752 Present Symptoms Shortness of breath Risk Factors Bed Rest BILATERAL: Imaging reveals a patent deep venous system bilaterally. There is no evidence of thrombus within the femoral, popliteal or tibial segments. The greater saphenous veins are also within normal limits. Doppler indicates normal spontaneous flow within these segments.
[2017-06-02] MEDS ORDERED: NS 275ml ONE (14:16)
[2017-06-02] MEDS ORDERED: Tubing IV Secondary IV ONE (14:16)
[2017-06-02 16:00] VITALS: BP 126/74
[2017-06-02 18:20] LABS: VITAMIN D 25-OH TOTAL 16 ng/mL (.)
[2017-06-02 20:00] VITALS: BP 118/70
[2017-06-03] MEDS ORDERED: VANCO 1.251.25 GM/15 IV (14:57)
--- NOTE | 2017-06-03 14:58 | Discharge Summary ---
Discharge Summary Hospital Course Date of Admission May 29, 2017 at 14:39 Date of Discharge Jun 02, 2017 at 20:45 Admitting Diagnosis fever, sepsis HPI Blas Crawford is a 32 year old female who was admitted on May 29, 2017 at 14: 39 for Fever,Sepsis Hospital Course dc summary #[id number] Discharge Medications New Medications: Bjdbebqyivcy-Aloc-Mbioygur,Iso (Zosyn 3.375 Gm Pre Mix-Bag) 3.375 Gm/50 Ml Froz.piggy 3.375 GM IVPB EVERY 8 HOURS for 2 Days, BAG Vancomycin/0.9 % Sod Chloride (Vanco 1.25 Gm/150 Ml-0.9% Nacl) 1.25 Gm/150 Ml Plast..bag 1.25 GM IV DAILY, #2 BAG Continued Medications: Acetaminophen/Hydrocodone ([place]ana 7.5-325 Tablet) 1 Each Tablet 1 TAB GT Q6H PRN for For Pain, TAB 0 Refills Albuterol Sulfate* (Albuterol Sulfate Mdi*) 8.5 Gm Hfa.aer.ad 2 PUFF INH Q6H PRN for Shortness of Breath, #1 INH 0 Refills Enoxaparin* (Lovenox*) 80 Mg/0.8 Ml Inj 80 MG SUBQ EVERY 12 HOURS, #60 EA 0 Refills Lisinopril* (Lisinopril*) 10 Mg Tablet 20 MG GT DAILY, TAB Metoprolol Tartrate* (Metoprolol Tartrate*) 25 Mg Tablet 25 MG GT DAILY, TAB Polyethylene Glycol 3350* (Miralax*) 17 Gm Powd.pack 17 GM GT DAILY, PACKET Propranolol Hcl* (Inderal*) 20 Mg Tablet 30 MG GT BID, #90 TAB 0 Refills Discharge Condition Upon Discharge: stable Discharge Disposition Patient was discharged to SNF/Subacute Facility(03) Discharge Diagnoses: Cristofer (Vancdilipein)Jocelyn NP Jun 03, 2017 14:58
[2017-06-04 15:17] LABS: HEMATOCRIT 23.8 % (34.0-46.6)
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
== END 2017-06-02 20:45 | DRG 720 ==
LOC: EDBD 11:56 → EDBEDREQ 13:12 → EMR 13:34 → 2W 14:39 → EDBEDREQ 14:47 → 2W 16:00
PROC: 5A1935Z Respiratory Ventilation, Less than 24 Consecutive Hours (ICD-10-PCS; principal; 2017-05-30)
DX: A41.9 Sepsis, unspecified organism (principal); J96.20 Acute and chronic respiratory failure, unspecified whether with hypoxia or hypercapnia; G93.40 Encephalopathy, unspecified; J18.9 Pneumonia, unspecified organism; Z43.0 Encounter for attention to tracheostomy; R53.2 Functional quadriplegia; I10 Essential (primary) hypertension; Z87.820 Personal history of traumatic brain injury; Z43.1 Encounter for attention to gastrostomy; D63.8 Anemia in other chronic diseases classified elsewhere; V89.2XXS Person injured in unspecified motor-vehicle accident, traffic, sequela
CPT/HCPCS: 36415; 36600; 71010; 72170; 80048; 80053; 80069; 80202; 81003; 82306; 82550; 82553; 82607; 82728; 82747; 82803; 83540; 83550; 83605; 83735; 84439; 84443; 84484; 85025; 85651; 87040; 87081; 93005; 93970; 94664; 94760; 99285

== ENCOUNTER 2017-10-08 00:12 | Emergency (ER) | payer OTHER ==
[~2017-10-08] VITALS: Ht 160 cm; Wt 54.4 kg
[~2017-10-08 00:12] MED LIST: ALBUTEROL SULF8.5 GM INH; COLACE100 MG GT; LISINOPRIL10 MG GT; LOVENOX10 M2 SUBQ; METOPROLOL TART25 MG GT; MIRALAX17 G2 GT; NORCO1 E1 GT; PROPRANOLOL HCL20 MG GT; VANCO 1.251.25 GM/15 IV; ZOSYN 3.373.375 GM/1 IVPB
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
[2017-10-08 02:24] VITALS: BP 92/56
--- NOTE | 2017-10-08 09:48 | Diagnostic Imaging Report ---
Indication: Post gastrostomy replacement Technique: Supine view of the abdomen after injection of 40 mL of Gastrografin into the gastrostomy Comparison: none Findings: Exam is somewhat limited, as the actual gastrostomy insertion site is not included. However, contrast predominantly layers within the gastric fundus, indicating adequate position of the gastrostomy Impression: Somewhat incompletely imaged, as described. Presumed satisfactory position of gastrostomy indicated by layering of contrast within the gastric fundus This agrees with the preliminary interpretation provided overnight by [facility] service.
== END 2017-10-08 02:26 ==
LOC: EDBD 00:12 → EMR 00:22
DX: Z43.1 Encounter for attention to gastrostomy (principal); I10 Essential (primary) hypertension; Z87.820 Personal history of traumatic brain injury; Z91.013 Allergy to seafood
CPT/HCPCS: 43760; 74018; 99283; Q9963